=== PATIENT | female | born 1975 | race Caucasian/White ===

== ENCOUNTER 2021-10-06 23:45 | Emergency (ER) | payer OTHER ==
[~2021-10-06] VITALS: Ht 172.7 cm; Wt 117.9 kg
[~2021-10-06 23:45] MED LIST: ALBUTEROL INHAL17 GM IH; ANUCORT-HC25 MG RECTAL; ASPIR-TRIN325 MG PO; COUMADIN 10MG T10 M1 PO; COUMADIN 10MG T10 MG PO; INDERAL 20 MG T20 MG PO; IRON325; LEXAPRO20 MG PO; NORCO 5-325 TA1 EACH PO; PEPCID40 MG PO; PERCOCET 5-3251 EACH PO; PHENADOZ25 MG RC; PHENERGAN 25 MG25 M1 PO; PRENATAL; SEROQUEL 100 M100 M1 PO; TOPAMAX 100 MG100 MG PO; TOPAMAX50 MG; TOPAMAX50 MG PO; XANAX 0.5 MG0.5 M1 PO; XANAX 1 MG TABLE1 MG PO; XANAX XR2 MG PO; XANAX1 MG PO; XARELTO15 MG PO; XARELTO20 MG PO; ZOFRAN ODT4 MG PO
[2021-10-07] MEDS ORDERED: WARFARIN SODIUM5 MG PO (00:11)
[2021-10-07 01:35] LABS: ABSOLUTE NEUTROPHILS 6.1 thou/uL (1.4-8.2); BASOPHILS 1.1 % (0.0-2.0); EOSINOPHILS 2.6 % (0.0-3.0); HEMATOCRIT 28.8 % (37.0-47.0); HEMOGLOBIN 9.2 gm/dL (12.0-15.0); LYMPHOCYTES 26.3 % (24.0-44.0); MCH 23.4 pg (26.0-34.0); MCHC 31.8 g/dL (28.0-37.0); MCV 73.5 fL (80.0-100.0); MONOCYTES 6.6 % (1.0-8.0); PLATELET COUNT 326 thou/uL (150-400); POLYS 63.4 % (36.0-66.0); RBC 3.92 mil/uL (4.20-5.00); RDW 18.1 % (10.5-14.5); WBC 9.7 thou/uL (4.0-11.0)
[2021-10-07 01:47] LABS: INR 2.19
[2021-10-07 01:55] LABS: ALBUMIN 3.3 g/dL (3.4-5.0); CALCIUM 8.8 mg/dL (8.5-10.1); CREATININE 0.8 mg/dL (0.6-1.0); POTASSIUM 3.9 mmol/L (3.5-5.1); TOTAL BILIRUBIN 0.2 mg/dL (0.2-1.0); TOTAL PROTEIN 7.3 g/dL (6.4-8.2)
--- NOTE | 2021-10-07 07:52 | EKG ---
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: : 1975 Requested By: Paco Enamorado Order Number: [id number] MD: Serafin Marshall Measurements Intervals [place] Rate: 79 P: 39 DC: 153 QRS: 27 QRSD: 107 T: 17 QT: 406 QTc: 466 Interpretive Statements Sinus rhythm Normal tracing Compared to ECG 11/12/2013 12:48:13 Myocardial infarct finding no longer present Electronically Signed On 10-07-2021 7:51:52 [employer] by Serafin Marshall [email or web address] <ELECTRONICALLY SIGNED> By: Serafin Marshall MD, [facility] 10/07/21 0751 [id number] Serafin Marshall MD, FACC /EPI
[2021-10-07 11:30] VITALS: BP 112/62
== END 2021-10-07 12:05 ==
LOC: ER 23:45
PROVIDERS: Emergency Medicine
DX: I74.9 Embolism and thrombosis of unspecified artery (principal); Z20.822 Contact with and (suspected) exposure to COVID-19; R20.0 Anesthesia of skin; M79.641 Pain in right hand; F41.9 Anxiety disorder, unspecified; Z90.49 Acquired absence of other specified parts of digestive tract; Z79.899 Other long term (current) drug therapy; Z79.891 Long term (current) use of opiate analgesic; Z88.5 Allergy status to narcotic agent; Z88.6 Allergy status to analgesic agent; Z88.8 Allergy status to other drugs, medicaments and biological substances